=== PATIENT | female | born 1990 | race Caucasian/White ===

== ENCOUNTER 2017-01-15 06:14 | Day surgery (SDC) | payer OTHER ==
--- NOTE | 2017-01-14 19:17 | HISTORY AND PHYSICAL ---
ADMITTED: 01/15/2017 HISTORY OF PRESENT ILLNESS: The patient is a 26-year-old female who has reinjured her right ankle. I carried out a stabilization procedure on 05/29/2016. She was healing uneventfully. Reports recently stepping off of a curb, felt a pull in her ankle and as a result, the ankle has become progressively more painful. States it is less painful when she inverts her heel. MEDICAL/SURGICAL HISTORY: Past medical history: History of stomach ulcer, jaundice as a child and anemia. Surgical history: The paper mentioned right ankle, carried out by myself in 05/2016, as well as wisdom teeth removed. PRIMARY CARE PROVIDER: Beto Malcolm MD. MEDICATIONS: 1. Tretinoin 0.025% topical cream apply to area as needed. 2. Trimethoprim 100 mg tablet 1 by mouth daily. ALLERGIES: 1. REPORTS AN ALLERGY TO LORBID. 2. AMOXICILLIN. SOCIAL HISTORY: She is single. Employed at [employer]. Does not smoke nor drink. FAMILY HISTORY: Noncontributory to chief complaint. REVIEW OF SYSTEMS: Ten-point review of systems noncontributory to chief complaint. PHYSICAL EXAMINATION: GENERAL: The patient is alert, oriented x3. HEENT: PERRLA. Normocephalic. Pupils reactive to light. HEART: Regular rate and rhythm. Regular S1 and S2. No murmurs. LUNGS: Respiration clear to auscultation. No wheezing, rhonchi, or rales. ABDOMEN: Soft, tender, nondistended. No masses. Normal tones. EXTREMITIES: Lower extremities/Vascular: DP and PT pulses are palpable. Skin texture and turgor within normal limits. Orthopedically, there is crepitus within the right ankle. There is a positive anterior drawer sign with 4-6 mm of anterior displacement, crepitus and pain with dorsiflexion with plantar flexion and inversion of the foot. NEUROLOGIC: Deep tendon reflexes, epicritic sensations are intact. LAB/IMAGING: Imaging taken on an OrthoScan weightbearing platform revealed a diastasis of the ankle mortise and syndesmosis. Previous MRI at [facility] revealed osteochondral lesions within the talus posterior medially and a portion of the torn peroneal brevis tendon. IMPRESSION: 1. Chronic ankle instability. 2. Osteochondral lesions. PLAN: This patient is scheduled for an outpatient procedure of revision of a stabilization. At this time, we will augment and repair both the anterior talar and calcaneal fibular ligaments respectively. We will also do an arthroscopy. Surgery is scheduled on outpatient basis at [facility] on 01/15/2017. No contraindications to surgery at this time.
[~2017-01-15 06:14] MED LIST: 5-HTP PO; PERCOCET1 TA4 PO; PRILOSEC40 MG PO; ZOFRAN4 MG PO
--- NOTE | 2017-01-15 10:02 | Provider's Discharge Care Plan ---
Problem, Goal, Plan Problem List 1. Sprain of other ligament of right ankle, subsequent encounter Goals: Improve function Instructions: Follow up as directed
--- NOTE | 2017-01-15 10:02 | Provider's Discharge Care Plan ---
Problem, Goal, Plan Problem List 1. Sprain of other ligament of right ankle, subsequent encounter Goals: Improve function Instructions: Follow up as directed
[2017-01-15 11:24] VITALS: BP 115/72
--- NOTE | 2017-01-15 20:05 | OPERATIVE REPORT ---
DATE OF SURGERY: 01/15/2017 SURGEON: Sergio Gibbs DPM PREOPERATIVE DIAGNOSES: 1. Chronic ankle instability 2. Recurrent ankle sprain POSTOPERATIVE DIAGNOSES: 1. Chronic ankle instability 2. Recurrent ankle sprain PROCEDURES PERFORMED: 1. Ankle arthroscopy with debridement 2. Lateral ankle stabilization, repair of both collateral ligaments ANESTHESIA: General. HEMOSTASIS: Achieved by pneumatic thigh tourniquet inflated to 300 mmHg pressure. TOURNIQUET TIME: Total tourniquet time is 100 minutes. MATERIALS: 3-0 and 4-0 Polysorb, 4-0 Surgipro, and 2 Arthrex internal brace kits with #2 FiberWire. INJECTABLES: Injected 20 mL of 0.5% bupivacaine plain. COMPLICATIONS: None. CONDITION: The patient tolerated anesthesia and procedure well. INDICATIONS: The patient is a 26-year-old female whom I carried out a stabilization arthroscopy in 05/2015. She was healing uneventfully, stepped aggressively and inadvertently off the curb and reinjured her ankle. States she felt something kind of pull, as a result, the ankle has never been quite the same. She has opted to proceed with surgical intervention and revision of the procedure. She is well aware of the planned procedure. This time we are also going to immobilize her for a prolonged period of time to allow the repair to kind of knit down more to bone. There are no contraindications to surgery at this time. SURGICAL TECHNIQUE: The patient was brought to the operating room, placed on operating room table in a supine position. At this time, a general anesthetic was administered. A pneumatic tourniquet was then placed above the right knee. Right lower extremity was prepped and draped in the normal sterile fashion. An intraoperative pause was carried out for positive identification, proper limb, consent form verified and confirmed. An Esmarch was then utilized to exsanguinate the limb, tourniquet was then inflated. Attention was directed to procedure #1. Ankle arthroscopy with debridement: At this time, leg was placed in a sterile leg conrad and an Arthrex ankle distractor was placed. Utilizing previous scars from portals, an 18-gauge needle was utilized initially medially into the joint. A #11 blade was then utilized to make a small incision, portal dissection was carried out and a blunt trocar was placed. The arthroscope was then placed in the medial portal. Upon entry, there was noted hemorrhagic synovitis anterior and medially and then extending posteriorly with evidence of previous osteochondral lesions. A corresponding lateral portal was made visualized on the screen. A #11 blade was then utilized to make an incision then a small joint shaver was then placed. The hemorrhagic synovium was excised in toto. The osteochondral lesion to the posterior medial aspect was smoothed down to a nice contoured surface. It was a very superficial lesion and there was no need, in my opinion, for any type of an oats type of procedure or a microfracture. It was very superficial in nature. Approximately 2500 mL of Lactated Ringer's were placed through the joint. Shaver and scope were removed. The incisions were reapproximated with 4-0 Polysorb. Attention was then directed to procedure #2. Lateral ankle stabilization with repair and augmentation of both the collateral ligaments. At this time, a linear incision was made on the anterior distal aspect of the fibula extending just anterior and inferior to the fibula. It was deepened by sharp and blunt dissection. On the anterior distal portion significant scar tissue was found. Meticulous dissection was carried out. The previous FiberWire was noted to have significant amount of slack in it. It was still in bone, but there was significant amount of slack noted. The wire was then removed in toto. Any redundant scar tissue was removed. There was noted buildup of scar within the lateral gutter, which is consistent with her clinical findings of pain in a neutral position. It was removed in toto. A guidewire was then driven slightly anterior and obliquely in the distal fibula, verified under fluoroscopy for proper placement. A second additional K-wire was then driven from the posterior aspect of the distal fibula and oriented obliquely towards the lateral gutter. Verified under fluoroscopy for proper placement. Both the more anterior wire was drilled with a 2.7 K-wire and tapped. The second wire more posterior hole was then drilled with a 2.7 cannulated drill and tapped accordingly and again verified under fluoroscopy with taps in place, unsure that there was adequate placement in bone, as well as not to cause any convergence. The anterior portal was then loaded with an Arthrex SwiveLock and the 2.7 FiberWire. The posterior one was then also loaded with a SwiveLock and a #2 FiberWire exiting. So there were 4 strands in toto, 2 anterior and 2 posterior. The anterior portion dissection was carried anteriorly towards the body of the talus. A guidewire was then placed obliquely and verified under fluoroscopy and oriented towards the posterior medial malleolus. It was drilled initially with 2.7 drill, overdrilled with the 3.4 and then tapped. Additional SwiveLock was placed. The FiberWire was then loaded with the foot in neutral position. A FiberWire was then inserted with excellent tension. At this time, the FiberWire posteriorly, a stab incision was then made in the posterior and inferior calcaneus just inferior of the lateral malleolus. Guidewire was driven, verified under fluoroscopy for proper placement. A curved Lorelei was then utilized to go up inferior to the retinaculum and the peroneal tendons. The FiberWire was then grabbed by the Lorelei and then captured and brought more inferior out of the stab incision. A 2.7 drill was then utilized, then overdrilled with a 3.4, tapped accordingly and a second SwiveLock with FiberWire loaded and the foot in a neutral position, the FiberWire was then inserted with excellent tension. The area was flushed. There was noted significant stability obtained. The capsule and retinaculum were reapproximated in a [id number] fashion with 3-0 Polysorb, subcutaneous with 4-0, and skin edge was then reapproximated in running fashion of both the main incision, as well as the stab incision on the calcaneus. There was an excellent repair. The area was then locally anesthetized with aforementioned local anesthetic, approximately 20 mL. A light compressive dressing was applied, as well as a prefabricated Ortho-Glass splint with the foot at 90 degrees of lower leg. The patient tolerated procedure without complications. She will be discharged home in stable condition, but prognosis being guarded.
== END 2017-01-15 13:40 | disposition home or self-care (01) ==
LOC: OR SRH 06:14 → SCU SRH 06:18 → OR SRH 07:30
PROVIDERS: Podiatrist
PROC: 0SBF4ZZ Excision of Right Ankle Joint, Percutaneous Endoscopic Approach (ICD-10-PCS; principal; 2017-01-15 07:30)
PROC: 0MQQ0ZZ Repair Right Ankle Bursa and Ligament, Open Approach (ICD-10-PCS; principal; 2017-01-15 07:30)
DX: M25.371 Other instability, right ankle (principal); S93.491S Sprain of other ligament of right ankle, sequela; M65.871 Other synovitis and tenosynovitis, right ankle and foot
CPT/HCPCS: 29240; 50002; 60001; 70002; 80144; 80212; 80360; 80575; 83419; 83612; 83773; 83860; 84038; 84081; 84522; 90074; 90100; 95059; 98428